=== PATIENT | male | born 1990 | race Caucasian/White ===

== ENCOUNTER 2017-04-17 21:02 | Emergency (ER) | payer SELFPAY ==
[2017-04-17 21:34] VITALS: BP 133/79; PULSE 71; RESP 16; TEMP 98.8
--- NOTE | 2017-04-17 22:00 | ED ---
ENT HPI - General Chief complaint: ENT Stated complaint: Poss Swimmers Ear Time Seen by Provider: 04/17/17 21:35 Source: patient, RN notes reviewed Mode of arrival: ambulatory Limitations: no limitations - History of Present Illness Initial comments: patient is a 26 -year-old male presents to the emergency room for evaluation of right ear pain. Patient does state he was swimming 2 days ago. Patient states that the next day he woke up and he felt pressure in his right ear. Patient states he is now having pain in his right ear and decrease in hearing. Patient denies fevers or chills. Patient denies headache or dizziness. Patient denies any drainage from his ear. - Related Data Previous Rx's Medication Instructions Recorded Ofloxacin 0.3% Otic Soln [Floxin 10 drops RIGHT EAR DAILY 7 Days 04/17/17 0.3% Otic Soln] Allergies Allergy/AdvReac Type Severity Reaction Status Date / Time No Known Allergies Allergy Verified 04/17/17 21:37 Review of Systems ROS Statement: Those systems with pertinent positive or pertinent negative responses have been documented in the HPI. ROS Other: All systems not noted in ROS Statement are negative. Past Medical History Past Medical History: No Reported History History of Any Multi-Drug Resistant Organisms: None Reported Past Surgical History: No Surgical Hx Reported Past Psychological History: No Psychological Hx Reported Smoking Status: Never smoker Past Alcohol Use History: Occasional Past Drug Use History: None Reported General Exam - General Exam Comments Initial Comments: sitting on exam bed, no acute distress. Limitations: no limitations General appearance: alert, in no apparent distress Head exam: Present: atraumatic, normocephalic, normal inspection Eye exam: Present: normal appearance ENT exam: Present: normal exam Expanded TM/Canal exam: Erythema: Right TM (canal erythema), Canal Tenderness: Right TM Neck exam: Present: normal inspection, full ROM. Absent: tenderness, lymphadenopathy Respiratory exam: Absent: respiratory distress Extremities exam: Present: normal inspection Back exam: Present: normal inspection Neurological exam: Present: alert, oriented X3, CN II-XII intact, normal gait Psychiatric exam: Present: normal affect, normal mood Skin exam: Present: warm, dry, intact, normal color. Absent: rash Course Vital Signs 04/17/17 21:31 Temperature 98.8 F Pulse Rate 71 Respiratory 16 Rate Blood Pressure 133/79 O2 Sat by Pulse 99 Oximetry Medical Decision Making - Medical Decision Making Patient is a 26-year-old male presents emergency room for evaluation of right ear pain. Patient does have right canal erythema and tenderness. Will treat patient for otitis externa. Patient states he understands everything that was discussed with him. Return parameters discussed. Disposition Clinical Impression: Right otitis externa Disposition: HOME SELF-CARE Condition: Good Instructions: Otitis Externa (ED) Additional Instructions: Apply eardrops as directed. Take Tylenol or Motrin as needed for discomfort. Please follow up with primary care provider in 24-48 hours for reevaluation. If any new symptom arises or symptoms worsen, return to ER as soon as possible. Prescriptions: Ofloxacin 0.3% Otic Soln [Floxin 0.3% Otic Soln] 10 drops RIGHT EAR DAILY 7 Days Referrals: None,Stated [Primary Care Provider] - 1-2 days Time of Disposition: 21:56
== END 2017-04-17 22:07 | disposition home or self-care (01) ==
LOC: EC 21:02
DX: H60.91 Unspecified otitis externa, right ear (principal)
CPT/HCPCS: 99282